=== PATIENT | female | born 1970 | race Two or more races ===

== ENCOUNTER 2022-10-26 14:58 | Emergency (ER) | payer OTHER ==
[~2022-10-26] VITALS: Ht 154.9 cm; Wt 120.3 kg
[2022-10-26] MEDS ORDERED: SODIUM CHLORIDE 0.9% 1,000 ML IV ONE (15:30)
[2022-10-26 16:04] LABS: Basophils # (auto) 0 10 ^3/uL (0-0.2); Basophils % (auto) 0.4 % (0.0-2.0); Eosinophils # (auto) 0.2 10 ^3/uL (0-0.8); Eosinophils % (auto) 1.9 % (0.0-7.0); Hematocrit 50.9 % (36.0-46.0); Hemoglobin 16.8 g/dL (12.2-16.2); Lymphocytes # (auto) 2.6 10 ^3/uL (0.4-5.4); Lymphocytes % (auto) 29.8 % (10.0-50.0); Mean Corpuscular Hemoglobin 30.2 pg (28.0-32.0); Mean Corpuscular Hgb Conc. 32.9 g/dL (32.0-36.0); Mean Corpuscular Volume 91.9 fL (80.0-100.0); Monocytes # (auto) 0.7 10 ^3/uL (0-1.3); Monocytes % (auto) 7.8 % (0.0-12.0); Neutrophils # (auto) 5.3 10 ^3/uL (1.6-8.6); Neutrophils % (auto) 60.1 % (37.0-80.0); Nucleated Red Blood Cells % 0.1 %; Red Blood Cells 5.54 10^6/uL (4.0-5.20); Red Cell Distribution Width 14.1 % (11.8-14.3); White Blood Cell 8.8 10^3/uL (4.4-10.8)
[2022-10-26 16:05] LABS: Albumin 3.5 g/dL (3.4-5.0); Calcium 8.9 mg/dL (8.5-10.1); Potassium 4.2 mmol/L (3.5-5.1)
[2022-10-26 16:22] LABS: BUN/Creatinine Ratio 25.4 (10.0-20.0); Bilirubin, Total 0.5 mg/dL (0.2-1.0)
[2022-10-26 16:26] LABS: INR 0.97 (0.9-1.15); Partial Thromboplastin Time 27.1 sec (24.6-33.4)
[2022-10-26] MEDS ORDERED: METF-490 PO (17:30)
[2022-10-26 21:51] VITALS: BP 136/76
== END 2022-10-26 21:53 | disposition home or self-care (01) ==
LOC: ER 14:58
DX: R73.9 Hyperglycemia, unspecified (principal); R53.1 Weakness; Z98.890 Other specified postprocedural states
CPT/HCPCS: 36415; 71046; 80053; 82010; 83735; 83880; 84484; 85025; 85610; 85730; 93005; 96360; 99285; J7030